=== PATIENT | female | born 1985 | race African-American/Black ===

== ENCOUNTER 2016-08-04 16:06 | Emergency (ER) | payer OTHER, MEDICAID ==
[~2016-08-04] VITALS: Ht 167.6 cm; Wt 73.0 kg
[~2016-08-04 16:06] MED LIST: CYCL1TAB29 PO; DICL75TA PO; MOTR200T4 PO
[2016-08-04 16:08] VITALS: BP 121/92; PULSE 78; RESP 15; TEMP 97.9; O2SAT 98
[2016-08-04] MEDS ORDERED: SODIUM CHLOR 0.9% 1000 ML INJ 1,000 ML IV SCH (16:37)
--- NOTE | 2016-08-04 16:38 | PD ---
HPI Chief Complaint: GI Complaint Time Seen by Provider: 16:38 Travel History International Travel<30 days: No Contact w/Intl Traveler<30days: No Traveled to known affect area: No History of Present Illness HPI 22 year-old female presents to the emergency department for evaluation of epigastric pain, nausea, vomiting, and bloating. She is concerned that she may be because this is how she felt when she was . Ice fever or chills. Reports daily alcohol consumption. Denies any urinary symptoms. No vaginal discharge or bleeding. No other symptoms to report. PFSH Past Medical History Medical History: Denies Significant Hx Diminished Hearing: No Seizures: Yes (AT AGE 12, S/P NOSE BLEED) Shingles: Yes ?: Unknown : 2 Para: 1 : 1 Past Surgical History Surgical History: No Previous Surgery Section: Yes Social History Alcohol Use: Yes (OCCASIONALLY) Tobacco Use: No Substance Use: No Allergies-Medications (Allergen,Severity, Reaction): Coded Allergies: No Known Allergies (Verified , 02/18/16) Reported Meds & Prescriptions Reported Meds & Active Scripts Active Omeprazole 40 Mg Cap 40 Mg PO DAILY Keflex (Cephalexin) 500 Mg Cap 500 Mg PO Q12H 7 Days Review of Systems Except as stated in HPI: all other systems reviewed are Neg Physical Exam Narrative GENERAL: Well-nourished female patient, in no acute distress SKIN: Focused skin assessment warm/dry. HEAD: Atraumatic. Normocephalic. EYES: Pupils equal and round. No scleral icterus. No injection or drainage. ENT: No nasal bleeding or discharge. Mucous membranes pink and moist. NECK: Trachea midline. No JVD. CARDIOVASCULAR: Regular rate and rhythm. No murmur appreciated. RESPIRATORY: No accessory muscle use. Clear to auscultation. Breath sounds equal bilaterally. GASTROINTESTINAL: Abdomen soft, nondistended. Epigastric tenderness to palpation. Hepatic and splenic margins not palpable. MUSCULOSKELETAL: No obvious deformities. No clubbing. No cyanosis. No edema. NEUROLOGICAL: Awake and alert. No obvious cranial nerve deficits. Motor grossly within normal limits. Normal speech. PSYCHIATRIC: Appropriate mood and affect; insight and judgment normal. Data Data Last Documented VS Vital Signs Date Time Temp Pulse Resp B/P Pulse Ox O2 Delivery O2 Flow Rate FiO2 08/04/16 16:08 97.9 78 15 121/92 98 Orders Ed Urine Pregnancytest Poc (08/04/16 16:16) Complete Blood Count With Diff (08/04/16 16:37) Comprehensive Metabolic Panel (08/04/16 16:37) Lipase (08/04/16 16:37) Urinalysis - C+S If Indicated (08/04/16 16:37) Iv Access Insert/Monitor (08/04/16 16:37) Ecg Monitoring (08/04/16 16:37) Oximetry (08/04/16 16:37) Ondansetron Inj (Zofran Inj) (08/04/16 16:45) Sodium Chlor 0.9% 1000 Ml Inj (Ns 1000 M (08/04/16 16:37) Sodium Chloride 0.9% Flush (Ns Flush) (08/04/16 16:45) Al-Mag Hy-Si 40-40-4 Mg/Ml Liq (Mag-Al P (08/04/16 16:45) Lidocaine 2% Viscous (Xylocaine 2% Visco (08/04/16 16:45) Urine Culture (08/04/16 16:45) Labs Laboratory Tests Test 08/04/16 08/04/16 16:45 16:50 Urine Color YELLOW Urine Turbidity CLOUDY Urine pH 6.0 Urine Specific Fackler 1.031 Urine Protein 30 mg/dL Urine Glucose (UA) NEG mg/dL Urine Ketones NEG mg/dL Urine Occult Blood NEG Urine Nitrite NEG Urine Bilirubin NEG Urine Urobilinogen LESS THAN 2.0 MG/DL Urine Leukocyte Esterase NEG Urine RBC 1 /hpf Urine WBC 1 /hpf Urine Squamous Epithelial 33 /hpf Cells Urine Bacteria MANY /hpf Urine Mucus MANY /lpf Microscopic Urinalysis Comment CULTURE INDICATED White Blood Count 5.2 TH/MM3 Red Blood Count 4.33 MIL/MM3 Hemoglobin 12.2 GM/DL Hematocrit 37.6 % Mean Corpuscular Volume 86.7 FL Mean Corpuscular Hemoglobin 28.2 PG Mean Corpuscular Hemoglobin 32.5 % Concent Red Cell Distribution Width 15.4 % Platelet Count 208 TH/MM3 Mean Platelet Volume 8.9 FL Neutrophils (%) (Auto) 45.9 % Lymphocytes (%) (Auto) 36.0 % Monocytes (%) (Auto) 11.7 % Eosinophils (%) (Auto) 5.0 % Basophils (%) (Auto) 1.4 % Neutrophils # (Auto) 2.4 TH/MM3 Lymphocytes # (Auto) 1.9 TH/MM3 Monocytes # (Auto) 0.6 TH/MM3 Eosinophils # (Auto) 0.3 TH/MM3 Basophils # (Auto) 0.1 TH/MM3 CBC Comment AUTO DIFF Differential Comment AUTO DIFF CONFIRMED Platelet Estimate NORMAL Platelet Morphology Comment ENLARGED Sodium Level 140 MEQ/L Potassium Level 3.8 MEQ/L Chloride Level 107 MEQ/L Carbon Dioxide Level 25.5 MEQ/L Anion Gap 8 MEQ/L Blood Urea Nitrogen 15 MG/DL Creatinine 0.80 MG/DL Estimat Glomerular Filtration 103 ML/MIN Rate Random Glucose 83 MG/DL Calcium Level 8.8 MG/DL Total Bilirubin 0.6 MG/DL Aspartate Amino Transf 23 U/L (AST/SGOT) Alanine Aminotransferase 22 U/L (ALT/SGPT) Alkaline Phosphatase 63 U/L Total Protein 8.3 GM/DL Albumin 4.2 GM/DL Lipase 111 U/L MDM Medical Decision Making Medical Screen Exam Complete: Yes Emergency Medical Condition: Yes Medical Record Reviewed: Yes Differential Diagnosis Gastritis versus pancreatitis versus cholecystitis versus versus UTI Narrative Course 22 year-old female presents to the emergency department for evaluation of abdominal pain. Patient appears without distress. CBC is without acute concern. CMP is also unremarkable. Lipase is within normal limits. Urinalysis is cloudy with 30 proteinuria, many bacteria, many mucus. Cultures indicated. Patient be started on oral antibiotics for her UTI. She is encouraged to follow-up with a primary care provider and return immediately with any acute worsening symptoms. I have also counseled the patient on alcohol consumption in advised that she seek help if she needs help to stop drinking. Diagnosis Primary Impression: Gastritis Qualified Code: K29.00 - Acute gastritis without hemorrhage, unspecified gastritis type Additional Impression: UTI (urinary tract infection) Qualified Code: N39.0 - Urinary tract infection without hematuria, site unspecified Referrals: Primary Care Physician Patient Instructions: General Instructions, Urinary Tract Infection in Women ( ED) Additional Instructions: Maintain adequate oral hydration Follow-up with primary care provider Return immediately with any acute worsening symptoms Med/Other Pt SpecificInfo: Prescription(s) given Scripts Omeprazole 40 Mg Cap40 Mg PO DAILY #14 CAP Ref 0 Prov:Ashley Guy 08/04/16 Cephalexin (Keflex)500 Mg [id number] Mg PO Q12H 7 Days Ref 0 Prov:Ashley Guy 08/04/16 Disposition: 01 DISCHARGE HOME Condition: Stable Ashley Guy Aug 04, 2016 16:38
[2016-08-04] MEDS ORDERED: LIDOCAINE VISCOUS 2% SOLN 15 ML UDC PO ONE (16:45)
[2016-08-04] MEDS ORDERED: SODIUM CHLORIDE 0.9% FLUSH 10 ML FLUSH IV FLUSH PRN (16:45)
[2016-08-04] MEDS ORDERED: ALUMINUM/MAGNESIUM/SIMETH 30 ML CUP PO ONE (16:45)
[2016-08-04] MEDS ORDERED: ONDANSETRON HCL 4 MG/2 ML VIAL IVP ONE (16:45)
[2016-08-04 17:28] LABS: AUTOMATED NEUTROPHIL # 2.4 TH/MM3 (1.8-7.7); BASOPHIL # 0.1 TH/MM3 (0-0.2); BASOPHIL % 1.4 % (0.0-2.0); EOSINOPHIL # 0.3 TH/MM3 (0-0.4); HEMATOCRIT 37.6 % (35.0-46.0); LYMPHOCYTE # 1.9 TH/MM3 (1.0-4.8); MEAN CELL VOLUME 86.7 FL (80.0-100.0); MEAN CORPUSCULAR HEMOGLOBIN 28.2 PG (27.0-34.0); MEAN CORPUSCULAR HGB CONC 32.5 % (32.0-36.0); MONO % 11.7 % (0.0-8.0); NEUT % 45.9 % (16.0-70.0); PLATELET COUNT 208 TH/MM3 (150-450); RED BLOOD COUNT 4.33 MIL/MM3 (4.00-5.30); RED CELL DISTRIBUTION WIDTH 15.4 % (11.6-17.2); WHITE BLOOD COUNT 5.2 TH/MM3 (4.0-11.0)
[2016-08-04 17:29] LABS: BACTERIA, URINE MANY /hpf; BLOOD, URINE NEG (NEG); COMMENT (UR) CULTURE INDICATED; CULTURE IF INDICATED CULTURE INDICATED; GLUCOSE,URINE NEG (NEG); KETONE, URINE NEG (NEG); MUCUS URINE MANY /lpf (OCC); NITRITE,URINE NEG (NEG); SQUAMOUS EPITHELIAL CELL URINE 33 /hpf (0-5); URINE COLOR YELLOW (YELLW/STRAW)
[2016-08-04 17:39] LABS: HEMO FLAGS AUTO DIFF
[2016-08-04 17:46] LABS: ANION GAP 8 MEQ/L (5-15); AST (GOT) 23 U/L (15-37); BICARBONATE 25.5 MEQ/L (21.0-32.0); BLOOD UREA NITROGEN 15 MG/DL (7-18); CHLORIDE 107 MEQ/L (98-107); GLOMERULAR FILTRATION RATE 103 ML/MIN (>89); POTASSIUM 3.8 MEQ/L (3.5-5.1); SODIUM (NA) 140 MEQ/L (136-145)
[2016-08-04 17:49] LABS: ALKALINE PHOSPHATASE 63 U/L (45-117); ALT (GPT) 22 U/L (10-53); TOTAL BILIRUBIN ADULT 0.6 MG/DL (0.2-1.0)
[2016-08-04] MEDS ORDERED: CEPH-460 PO (18:00)
[2016-08-04] MEDS ORDERED: OMEP40CA2 PO (18:00)
[2016-08-04 18:33] LABS: PLATELET ESTIMATE SMEAR NORMAL (NORMAL)
[2016-08-04 18:34] LABS: PLATELET MORPHOLOGY ENLARGED (NORMAL); SCAN/DIFF AUTO DIFF CONFIRMED
== END 2016-08-04 18:30 | disposition home or self-care (01) ==
LOC: NEPD 16:06
DX: K29.70 Gastritis, unspecified, without bleeding (principal); N39.0 Urinary tract infection, site not specified
CPT/HCPCS: 80053; 81001; 83690; 84703; 85025; 87086; 87186; 96374; 99284; J2405; J7030

== ENCOUNTER 2016-10-27 09:59 | Emergency (ER) | payer MEDICAID ==
[~2016-10-27] VITALS: Ht 170.2 cm; Wt 72.5 kg
[~2016-10-27 09:59] MED LIST changes: +CEPH-460 PO; -CYCL1TAB29 PO; -DICL75TA PO; -MOTR200T4 PO; +OMEP40CA2 PO
[2016-10-27 10:01] VITALS: BP 130/76; PULSE 78; RESP 20; TEMP 98.5; O2SAT 100
[2016-10-27] MEDS ORDERED: CYCL5TAB PO (10:18)
[2016-10-27] MEDS ORDERED: NAPR500T PO (10:18)
--- NOTE | 2016-10-27 10:18 | PD ---
HPI Chief Complaint: Back/ Neck Pain or Injury Time Seen by Provider: 10:16 Travel History International Travel<30 days: No Contact w/Intl Traveler<30days: No Traveled to known affect area: No History of Present Illness HPI 30-year-old female with history of back spasms, presents to emergency department for exacerbation of this. Patient states it is along the left side of her back, consistent with previous spasms. Denies any injury. No focal deficits or weakness. No fever or chills. No chest pain or tightness. No other symptoms to report. PFSH Past Medical History Medical History: Denies Significant Hx Diminished Hearing: No Seizures: Yes (AT AGE 12, S/P NOSE BLEED) Shingles: Yes ?: Not : 2 Para: 1 : 1 Past Surgical History Section: Yes Social History Alcohol Use: Yes (OCCASIONALLY) Tobacco Use: No Substance Use: No Allergies-Medications (Allergen,Severity, Reaction): Coded Allergies: No Known Allergies (Verified , 10/27/16) Reported Meds & Prescriptions Reported Meds & Active Scripts Active Naproxen 500 Mg Tab 500 Mg PO BID PRN Flexeril (Cyclobenzaprine HCl) 5 Mg Tab 5 Mg PO TID PRN Omeprazole 40 Mg Cap 40 Mg PO DAILY Keflex (Cephalexin) 500 Mg Cap 500 Mg PO Q12H 7 Days Review of Systems Except as stated in HPI: all other systems reviewed are Neg Physical Exam Narrative GENERAL: Well-nourished, well-developed email patient, tearful but in no acute distress SKIN: Focused skin assessment warm/dry. HEAD: Normocephalic. EYES: No scleral icterus. No injection or drainage. NECK: Supple, trachea midline. No JVD or lymphadenopathy. CARDIOVASCULAR: Regular rate and rhythm without murmurs, gallops, or rubs. RESPIRATORY: Breath sounds equal bilaterally. No accessory muscle use. GASTROINTESTINAL: Abdomen soft, non-tender, nondistended. MUSCULOSKELETAL: No cyanosis, or edema. BACK: No midline tenderness without obvious deformity. There is palpable spasm along the left thoracic paraspinous musculature. No CVA tenderness. Data Data Last Documented VS Vital Signs Date Time Temp Pulse Resp B/P Pulse Ox O2 Delivery O2 Flow Rate FiO2 10/27/16 10:01 98.5 78 20 130/76 100 Room Air Orders Ketorolac Inj (Toradol Inj) (7/19/17 10:30) Orphenadrine Inj (Norflex Inj) (10/27/16 10:30) MDM Medical Decision Making Medical Screen Exam Complete: Yes Emergency Medical Condition: Yes Medical Record Reviewed: Yes Differential Diagnosis Muscle spasm versus strain versus discogenic pain versus radiculopathy Narrative Course 30 year-old female presents to emergency department for evaluation of muscle spasm. Patient is treated for this. She is comfortable being discharged following intervention. She is encouraged to follow-up with primary care provider. She agrees to return immediately with any acute worsening of symptoms. Diagnosis Primary Impression: Muscle spasm of back Referrals: Primary Care Physician Patient Instructions: General Instructions, Muscle Spasm (ED) Additional Instructions: Warm moist heat may help to alleviate the symptoms Light massage and stretching may also help Follow-up with a primary care provider Return immediately with any acute worsening symptoms Med/Other Pt SpecificInfo: Prescription(s) given Scripts Naproxen 500 Mg [id number] Mg PO BID PRN (PAIN SCALE 1 TO 10) #30 TAB Ref 0 Prov:Ashley Guy 10/27/16 Cyclobenzaprine (Flexeril)5 Mg Tab5 Mg PO TID PRN (MUSCLE SPASM) #20 TAB Ref 0 Prov:Ashley Guy 10/27/16 Disposition: 01 DISCHARGE HOME Condition: Stable Ashley Guy Oct 27, 2016 10:18
[2016-10-27] MEDS ORDERED: ORPHENADRINE INJ 60 MG/2 ML AMP IM ONE (10:30)
[2016-10-27] MEDS ORDERED: KETOROLAC TROMETHAMINE 60 MG/2 ML (IM) VIAL IM ONE (10:30)
== END 2016-10-27 10:36 | disposition home or self-care (01) ==
LOC: NEPK 09:59
DX: M62.830 Muscle spasm of back (principal); R56.9 Unspecified convulsions; Z79.899 Other long term (current) drug therapy
CPT/HCPCS: 96372; 99284; J1885; J2360

== ENCOUNTER 2016-11-15 15:05 | Emergency (ER) | payer MEDICAID ==
[~2016-11-15] VITALS: Ht 170.2 cm; Wt 71.0 kg
[~2016-11-15 15:05] MED LIST changes: +CYCL5TAB PO; +NAPR500T PO
[2016-11-15 15:06] VITALS: BP 145/85; PULSE 80; RESP 22; TEMP 99; O2SAT 100
--- NOTE | 2016-11-15 15:30 | PD ---
Physical Exam Date Seen by Provider: Nov 15, 2016 Time Seen by Provider: 15:28 Narrative 31 y/o female with C/O ST and upper respiratory symptoms including fever for the past 2 days. No Nausea or Vomiting. Vital signs reviewed. Patient stable. Awaiting Bed placement. Data Data Last Documented VS Vital Signs Date Time Temp Pulse Resp B/P Pulse Ox O2 Delivery O2 Flow Rate FiO2 11/15/16 15:06 99.0 80 22 145/85 100 MDM Medical Record Reviewed: Yes Supervised Visit with DINA: Yes Condition: Stable Viral Whalen Nov 15, 2016 15:30
== END 2016-11-15 17:31 | disposition left against medical advice (07) ==
LOC: NED 15:05
DX: J02.9 Acute pharyngitis, unspecified (principal); R50.9 Fever, unspecified; Z53.21 Procedure and treatment not carried out due to patient leaving prior to being seen by health care provider
CPT/HCPCS: 99281

== ENCOUNTER 2016-11-17 13:40 | Emergency (ER) | payer MEDICAID ==
[~2016-11-17] VITALS: Ht 165.1 cm; Wt 75.0 kg
[2016-11-17 13:41] VITALS: BP 135/80; PULSE 104; RESP 20; TEMP 99.2; O2SAT 99
--- NOTE | 2016-11-17 13:44 | PD ---
Physical Exam Date Seen by Provider: Nov 17, 2016 Time Seen by Provider: 13:43 Narrative 31 yo female here for sore throat. States she has had fever, sore throat and congestion. No sick contacts. Taking OTC meds with no issues. Vitals are stable in triage. Awaiting Bed placement. Data Data Last Documented VS Vital Signs Date Time Temp Pulse Resp B/P Pulse Ox O2 Delivery O2 Flow Rate FiO2 11/17/16 13:41 99.2 104 20 135/80 99 Room Air [facility] Medical Record Reviewed: Yes Supervised Visit with DINA: Tae Engel Nov 17, 2016 13:44
[2016-11-17] MEDS ORDERED: ALEV220T14 PO (13:53)
--- NOTE | 2016-11-17 13:57 | PD ---
HPI Chief Complaint: Cold / Flu Symptoms Time Seen by Provider: 13:57 Travel History International Travel<30 days: No Contact w/Intl Traveler<30days: No Traveled to known affect area: No History of Present Illness HPI 31-year-old female presents emergency Department with complaint of a sore throat and fever since Tuesday. MAXIMUM TEMPERATURE 102.0. Denies nasal congestion, ear pain, cough. Denies lump in throat, difficulty swallowing, unusual drooling. Reports painful swallowing. No else with similar symptoms. Has been taking Aleve for symptom management. Says her sore throat and fever have improved yesterday and today. Has no other medical complaints. Symptom severity is mild. No known allergies. No other modifying factors or associated signs and symptoms. PFSH Past Medical History Diminished Hearing: No Seizures: Yes (AT AGE 12, S/P NOSE BLEED) Shingles: Yes ?: Not LMP: now : 2 Para: 1 : 1 Past Surgical History Section: Yes Social History Alcohol Use: Yes (OCC) Tobacco Use: No Substance Use: No Allergies-Medications (Allergen,Severity, Reaction): Coded Allergies: No Known Allergies (Verified , 11/17/16) Reported Meds & Prescriptions Reported Meds & Active Scripts Active Magic Mouthwash Pediatric/Adult Liq (Lidocaine/Diphenhydr/Alum/Mg/Simeth) 60 Ml Susp 5 Ml SWISH-SPIT Q3HR PRN Each 5mL contains: Diphenydramine 4.5mg, Viscous Lidocaine 2% 10mg, Maalox Advanced Regular Strength 2.7ml Ibuprofen 800 Mg Tab 800 Mg PO Q6HR PRN Reported Aleve Arthritis (Naproxen Sodium) 220 Mg Tab 220 Mg PO BID Review of Systems Except as stated in HPI: all other systems reviewed are Neg Physical Exam Narrative GENERAL: Well-nourished, well-developed female patient, in no acute distress; afebrile, nontoxic-appearing SKIN: Warm and dry. No rash. HEAD: Atraumatic. Normocephalic. EYES: Pupils equal and round. No scleral icterus. No injection or drainage. ENT: Mucosa pink and moist. Oral pharynx with erythema; without edema or exudates. No uvular edema. No uvular, palatal, or tonsillar deviation. Airway patent. EARS: Bilateral pinnae and external canals appear within normal limits. Bilateral tympanic membranes without erythema, dullness or perforation. NECK: Trachea midline. No anterior cervical lymphadenopathy or tenderness on palpation. CARDIOVASCULAR: Regular rate and rhythm. No murmur appreciated. RESPIRATORY: No accessory muscle use. Clear to auscultation. Breath sounds equal bilaterally. No retractions or tachypnea. GASTROINTESTINAL: Abdomen soft, non-tender, nondistended. Hepatic and splenic margins not palpable. Bowel sounds are active 4 quadrants. MUSCULOSKELETAL: No obvious deformities. No clubbing. No cyanosis. No edema. NEUROLOGICAL: Awake and alert. Oriented 3. No obvious cranial nerve deficits. Motor grossly within normal limits. Normal speech. Moves all extremities. 5/5 strength to all extremities. PSYCHIATRIC: Appropriate mood and affect; insight and judgment normal. Data Data Last Documented VS Vital Signs Date Time Temp Pulse Resp B/P Pulse Ox O2 Delivery O2 Flow Rate FiO2 11/17/16 13:41 99.2 104 20 135/80 99 Room Air Orders Group A Rapid Strep Screen (11/17/16 13:57) Strep Culture (Group A) (11/17/16 14:24) MDM Medical Decision Making Medical Screen Exam Complete: Yes Emergency Medical Condition: Yes Medical Record Reviewed: Yes Differential Diagnosis Viral pharyngitis, strep pharyngitis, less likely peritonsillar abscess Narrative Course 31-year-old female with sore throat. MAXIMUM TEMPERATURE 102.0. Denies lump in throat, difficulty swallowing, unusual drooling. Rapid strep ordered. 1449: Rapid strep negative. Magic mouthwash and ibuprofen prescribed for home. Instructed patient to follow up with primary care provider. Patient verbalizes understanding and agreement with treatment plan. Patient is medically cleared and stable for discharge. Discussed reasons to return to the emergency department. Patient agrees with treatment plan. The patients vital signs are stable and the patient is stable for outpatient follow-up and treatment. Patient discharged home, stable and in no acute distress. Diagnosis Primary Impression: Viral pharyngitis Referrals: Primary Care Physician Patient Instructions: General Instructions, Pharyngitis (ED) Departure Forms: Tests/Procedures, Work Release Enter return to work date: Nov 18, 2016 Additional Instructions: Throw away and change your toothbrush 24 hours after starting antibiotics Get plenty of sleep/rest Rest your voice Drink plenty of fluids to prevent dehydration Use warm saltwater gargles to soothe throat pain Use an air humidifier/turn off ceiling fans Use throat lozenges as needed for sore throat Use ibuprofen or acetaminophen as needed to relieve pain and fever Follow-up with your primary care provider within 2-4 days Return immediately to the emergency department with worsening of symptoms Med/Other Pt SpecificInfo: Prescription(s) given Scripts [id number]-Simeth Liq (Magic Mouthwash Pediatric/Adult Liq)60 Ml Susp5 Ml SWISH-SPIT Q3HR PRN (SORE THROAT) #60 ML Ref 0 Each 5mL contains: Diphenydramine 4.5mg, Viscous Lidocaine 2% 10mg, Maalox Advanced Regular Strength 2.7ml Prov:Shavon Garcia 11/17/16 Ibuprofen 800 Mg [id number] Mg PO Q6HR PRN (PAIN) #30 TAB Ref 0 Prov:Shavon Garcia 11/17/16 Disposition: 01 DISCHARGE HOME Condition: Stable Shavon Garcia Nov 17, 2016 13:57
[2016-11-17] MEDS ORDERED: MAGICPED SWISH-SPIT (14:49)
[2016-11-17] MEDS ORDERED: IBUP800T23 PO (14:49)
== END 2016-11-17 15:32 | disposition home or self-care (01) ==
LOC: NEPK 13:40
DX: J02.8 Acute pharyngitis due to other specified organisms (principal)
CPT/HCPCS: 87081; 87880; 99283